=== PATIENT | female | born 1975 | race Hispanic/Latino ===

== ENCOUNTER 2017-06-06 05:30 | Day surgery (SDC) | payer MEDICAID ==
[~2017-06-06] VITALS: Ht 172.7 cm; Wt 99.3 kg
[~2017-06-06 05:30] MED LIST: BUSP5TAB3 PO; DULO60CA63 PO; ERGO500014 PO; GABA-529 PO; ICOS0.5C PO; LEVO125T11 PO; METH250T3 PO; OMEP40CA37 PO; THIO300C PO; TURM500C9 PO; TYL3 PO; [UNRECOGNIZED DRUG - OTHER] SQ; berberine PO
[2017-06-06 05:58] VITALS: BP 137/84
[2017-06-06] MEDS ORDERED: MEPERIDINE-PF 50 MG/ML SYG ONE (06:12)
[2017-06-06] MEDS ORDERED: MIDAZOLAM HCL 1 MG/ML 2ML VIAL ONE (06:12)
[2017-06-06] MEDS ORDERED: SODIUM CHLORIDE 0.9% 1000ML 1,000 ML IV ONE (06:24)
== END 2017-06-06 07:40 | disposition home or self-care (01) ==
LOC: ENDO 05:30 → DAH 05:30 → ENDO 07:40
PROVIDERS: ATTEND Internal Medicine Gastroenterology
DX: K63.5 Polyp of colon (principal); K29.70 Gastritis, unspecified, without bleeding; K57.30 Diverticulosis of large intestine without perforation or abscess without bleeding; Z86.010 Personal history of colon polyps; E78.5 Hyperlipidemia, unspecified; I10 Essential (primary) hypertension; F41.9 Anxiety disorder, unspecified; F32.9 Major depressive disorder, single episode, unspecified; E03.9 Hypothyroidism, unspecified; E11.9 Type 2 diabetes mellitus without complications; M79.7 Fibromyalgia; Z98.890 Other specified postprocedural states; Z79.899 Other long term (current) drug therapy; Z79.84 Long term (current) use of oral hypoglycemic drugs; Z68.34 Body mass index [BMI] 34.0-34.9, adult; Z88.8 Allergy status to other drugs, medicaments and biological substances
CPT/HCPCS: 43239; 45380; 81025; 82948; 88305; 88312; 88342 ×2; A4606; J2175; J2250; J7030